=== PATIENT | female | born 1950 | race Caucasian/White ===

== ENCOUNTER 2017-07-13 20:21 | Emergency (ER) | payer BC, OTHER ==
[~2017-07-13] VITALS: Ht 154.9 cm; Wt 92.7 kg
[~2017-07-13 20:21] MED LIST: LEVAQUIN500 MG PO; LEVOTHYROXINE125 MCG PO; LOPRESSOR25 MG PO; MEDROL DOSEPAK4 MG PO; METFORMIN HCL1000 MG PO; TESSALON PERLE100 MG PO; VITAMIN B122500 MCG PO; VITAMIN D31000 UNIT PO; ZYRTEC10 M3 PO
[2017-07-13 21:07] LABS: ADD MIUA? YES; BILIRUBIN NEGATIVE; BLOOD NEGATIVE; COLOR YELLOW ((YELLOW)); GLUCOSE (STRIP) NEGATIVE; KETONES NEGATIVE; LEUKOCYTES LARGE; NITRITE NEGATIVE; PROTEIN (STRIP) NEGATIVE; SPECIFIC GRAVITY 1.008 (1.000-1.030); UROBILINOGEN 0.2 MG/DL (0.2-1.0)
[2017-07-13 21:14] LABS: BACTERIA RARE /HPF; EPITHELIAL CELLS 2+ /HPF; MUCUS TRACE /LPF; RED BLOOD CELLS 15-20 /HPF (0-5); URIC ACID CRYSTALS 3+ /HPF; WHITE BLOOD CELLS TNTC /HPF (0-5)
[2017-07-13] MEDS ORDERED: CIPRO500 MG PO (23:44)
[2017-07-13] MEDS ORDERED: TRAMADOL HCL50 MG PO (23:44)
[2017-07-13 23:54] VITALS: BP 132/73
== END 2017-07-13 23:56 | disposition home or self-care (01) ==
LOC: EME 20:21
PROVIDERS: Physician Assistant
DX: N12 Tubulo-interstitial nephritis, not specified as acute or chronic (principal); E11.9 Type 2 diabetes mellitus without complications; I10 Essential (primary) hypertension; E03.9 Hypothyroidism, unspecified; Z79.84 Long term (current) use of oral hypoglycemic drugs; Z88.6 Allergy status to analgesic agent
CPT/HCPCS: 72100; 74176; 81003; 99281; 99284

== ENCOUNTER 2017-07-15 09:44 | Emergency (ER) | payer BC, OTHER ==
[~2017-07-15] VITALS: Ht 154.9 cm; Wt 90.4 kg
[~2017-07-15 09:44] MED LIST changes: +CIPRO500 MG PO; +TRAMADOL HCL50 MG PO
[2017-07-15 11:04] LABS: HEMATOCRIT 35.8 % (36.0-46.0); MCH 31.4 PG (29.0-34.0); MCHC 34.6 G/DL (30.0-36.0); MCV 90.6 FL (83-99); MEAN PLAT.VOLUME 8.9 uM^3 (9.5-12.4); PLATELET COUNT 211 K/uL (156-360); RBC DIS.WIDTH-CV 12.7 % (11.8-14.6); RBC DIS.WIDTH-SD 41.1 % (39-53); RED BLOOD COUNT 3.95 M/uL (3.80-5.20); WHITE BLOOD COUNT 5.6 K/uL (4.1-10.2)
[2017-07-15 11:15] LABS: CHLORIDE 98 mEq/L (99-109); POTASSIUM 4.4 mEq/L (3.7-5.4); SODIUM 134 mEq/L (136-147)
[2017-07-15 11:17] LABS: GLUCOSE 124 mg/dL (70-99)
[2017-07-15 11:18] LABS: ANION GAP 10 MEQ/L (2-14)
[2017-07-15 11:19] LABS: TOTAL BILIRUBIN 0.6 mg/dL (0.0-1.0)
[2017-07-15 11:20] LABS: ALKALINE PHOSPHATASE 85 IU/L (3-129)
[2017-07-15 11:21] LABS: GFR ESTIMATE (CALCULATED) 44 mL/min/
[2017-07-15 11:22] LABS: DIRECT BILIRUBIN 0.2 mg/dL (0.0-0.3); UREA NITROGEN (BUN) 23 mg/dL (9-23)
[2017-07-15 11:24] LABS: LIPASE 16 U/L (1.0-51.0)
[2017-07-15] MEDS ORDERED: KEFLEX500 MG PO (11:55)
[2017-07-15] MEDS ORDERED: ZOFRAN4 MG PO (12:04)
[2017-07-15 13:16] VITALS: BP 130/71
== END 2017-07-15 13:18 | disposition home or self-care (01) ==
LOC: EME 09:44
PROVIDERS: Emergency Medicine
DX: R11.2 Nausea with vomiting, unspecified (principal); R19.7 Diarrhea, unspecified; N39.0 Urinary tract infection, site not specified; E11.9 Type 2 diabetes mellitus without complications; Z79.84 Long term (current) use of oral hypoglycemic drugs; I10 Essential (primary) hypertension; E03.9 Hypothyroidism, unspecified; Z88.6 Allergy status to analgesic agent
CPT/HCPCS: 80048; 80076; 81003; 83690; 85027; 87086; 87493; J0696; J2405; J7030

== ENCOUNTER 2017-08-04 10:00 | Emergency (ER) | payer BC, OTHER ==
[~2017-08-04] VITALS: Ht 154.9 cm; Wt 90.7 kg
[~2017-08-04 10:00] MED LIST changes: +KEFLEX500 MG PO; +ZOFRAN4 MG PO
[2017-08-04 13:04] VITALS: BP 147/94
== END 2017-08-04 13:08 | disposition home or self-care (01) ==
LOC: EME 10:00
DX: J40 Bronchitis, not specified as acute or chronic (principal); R19.7 Diarrhea, unspecified; T36.0X5A Adverse effect of penicillins, initial encounter; E11.9 Type 2 diabetes mellitus without complications; Z79.84 Long term (current) use of oral hypoglycemic drugs; I10 Essential (primary) hypertension; E03.9 Hypothyroidism, unspecified; Z86.73 Personal history of transient ischemic attack (TIA), and cerebral infarction without residual deficits
CPT/HCPCS: 71046; 99281; 99284

== ENCOUNTER 2017-10-07 14:56 | Emergency (ER) | payer BC, OTHER ==
[~2017-10-07] VITALS: Ht 157.5 cm; Wt 93.0 kg
[2017-10-07 15:35] VITALS: BP 139/90
[2017-10-07 18:11] LABS: APPEARANCE CLEAR ((CLEAR)); BILIRUBIN NEGATIVE; BLOOD NEGATIVE; COLOR YELLOW ((YELLOW)); GLUCOSE (STRIP) NEGATIVE; KETONES NEGATIVE; LEUKOCYTES NEGATIVE; NITRITE NEGATIVE; PROTEIN (STRIP) NEGATIVE; SPECIFIC GRAVITY 1.018 (1.000-1.030); UCUL ADDED? NO; UROBILINOGEN 0.2 MG/DL (0.2-1.0)
[2017-10-07] MEDS ORDERED: ULTRAM50 MG PO (18:31)
[2017-10-07] MEDS ORDERED: LIDODERM 5% P1 PATCH TD (18:31)
== END 2017-10-07 18:38 | disposition home or self-care (01) ==
LOC: EME 14:56
PROVIDERS: Physician Assistant Medical
DX: S39.012A Strain of muscle, fascia and tendon of lower back, initial encounter (principal); E11.9 Type 2 diabetes mellitus without complications; Z79.84 Long term (current) use of oral hypoglycemic drugs; I10 Essential (primary) hypertension; E03.9 Hypothyroidism, unspecified; Z86.73 Personal history of transient ischemic attack (TIA), and cerebral infarction without residual deficits
CPT/HCPCS: 81003; 99281; 99283